=== PATIENT | female | born 1990 | race Caucasian/White ===

== ENCOUNTER 2017-10-20 22:58 | Emergency (ER) | payer SELFPAY ==
[~2017-10-20] VITALS: Ht 162.6 cm; Wt 78.8 kg
[~2017-10-20 22:58] MED LIST: BACTRIM,SEPT1 TABLET PO; CITALOPRAM HBR20 M1 G-TUBE; JUNEL1 EAC1 PO; KLONOPIN0.5 M1 PO; TYLENOL WITH C1 EACH PO
[2017-10-21] MEDS ORDERED: TYLENOL ARTHRI650 MG PO (02:43)
[2017-10-21] MEDS ORDERED: IBU600 MG PO (02:43)
[2017-10-21 03:09] VITALS: BP 105/68
== END 2017-10-21 03:10 | disposition home or self-care (01) ==
LOC: TRA 22:58 → EME 22:58 → TRA 10-21 03:10
DX: S40.212A Abrasion of left shoulder, initial encounter (principal); S50.312A Abrasion of left elbow, initial encounter; S80.212A Abrasion, left knee, initial encounter; S80.211A Abrasion, right knee, initial encounter; V03.10XA Pedestrian on foot injured in collision with car, pick-up truck or van in traffic accident, initial encounter; Y92.510 Bank as the place of occurrence of the external cause; F41.9 Anxiety disorder, unspecified; F17.200 Nicotine dependence, unspecified, uncomplicated
CPT/HCPCS: 70450; 71046; 73030; 73080; 73564; 99281; 99285